=== PATIENT | male | born 1995 | race Caucasian/White ===

== ENCOUNTER 2023-09-07 18:08 | Emergency (ER) | payer SELFPAY ==
[2023-09-07] MEDS ORDERED: Acetaminophen/HYDROcodone 325-5 MG Tab PO ONE (18:57)
[2023-09-07] MEDS ORDERED: Lidocaine 4% 1 each Patch TOP STA (18:57)
[2023-09-07] MEDS ORDERED: Ondansetron 4 MG Tab.DIS PO ONE (18:57)
== END 2023-09-07 20:01 | disposition home or self-care (01) ==
LOC: MW.ED 18:08
DX: S20.212A Contusion of left front wall of thorax, initial encounter (principal); W06.XXXA Fall from bed, initial encounter
CPT/HCPCS: 71100; 99285; A9270; 99283